=== PATIENT | female | born 1975 | race Caucasian/White ===

== ENCOUNTER 2016-10-02 10:43 | Outpatient (CLI) | payer OTHER ==
[2016-10-02] MEDS ORDERED: IOPAMIDOL-300 100 ML VIAL IVP ONE (12:38)
[2016-10-02] MEDS ORDERED: IOPAMIDOL-300 50 ML VIAL PO ONE (12:38)
--- NOTE | 2016-10-02 16:16 | CT Report ---
CT OF THE ABDOMEN AND PELVIS WITH CONTRAST: 10/02/2016 CLINICAL INDICATION: Left lower quadrant pain, history of hysterectomy. TECHNIQUE: Axial CT images of the abdomen and pelvis were obtained with 100 mL of Isovue-300 intravenously as well as oral contrast. COMPARISON: 04/28/2015. FINDINGS: Limited evaluation of the lung bases is unremarkable. ABDOMEN: The liver, spleen, pancreas and adrenal glands are unremarkable. The kidneys demonstrate small cortical cysts. No hydronephrosis or nephrolithiasis is seen. No bowel dilatation, free gas, or free fluid is present. No abdominal adenopathy is seen. PELVIS: The patient is status post hysterectomy. A small amount of free fluid is present in the pelvis. There is a 2.1 cm left ovarian follicle present. No pelvic adenopathy is seen. The osseous structures are unremarkable. IMPRESSION: LEFT OVARIAN FOLLICLE. SMALL AMOUNT OF FREE FLUID IN THE PELVIS, LIKELY PHYSIOLOGIC. NO EVIDENCE OF BOWEL OBSTRUCTION OR PERFORATION. In accordance with CT protocol optimization, one or more of the following dose reduction techniques were utilized for this exam: automated exposure control, adjustment of mA and/or KV based on patient size, or use of iterative reconstructive technique. JOB #: [id number] EXT JOB #: [id number] KARLOD
== END 2016-10-02 10:44 | disposition home or self-care (01) ==
LOC: DI 10:43
PROVIDERS: ATTEND Obstetrics & Gynecology
DX: R10.32 Left lower quadrant pain (principal)
CPT/HCPCS: 74177; Q9967

== ENCOUNTER 2017-08-05 08:26 | Outpatient (CLI) | payer OTHER ==
[2017-08-05 08:42] LABS: BASOPHILS # (AUTO) 0.1 10^3/uL (0.0-0.1); BASOPHILS % (AUTO) 0.8 %; EOSINOPHILS # (AUTO) 0.2 10^3/uL (0.0-0.7); EOSINOPHILS % (AUTO) 2.3 %; HGB - HEMOGLOBIN 14.3 g/dL (12.0-16.0); LYMPHOCYTES % (AUTO) 27.5 %; MEAN CORPUSCULAR HEMOGLOBIN 31.4 pg (27.0-31.0); MEAN CORPUSCULAR HGB CONC 33.8 g/dL (32.0-36.0); MEAN CORPUSCULAR VOLUME 93.1 fL (81.0-99.0); MONOCYTES # (AUTO) 0.6 10^3/uL (0.0-1.0); MONOCYTES % (AUTO) 7.9 %; NEUTROPHILS # (AUTO) 4.5 10^3/uL (1.5-6.6); NEUTROPHILS % (AUTO) 61.5 %; PLT - PLATELET COUNT 282 10^3/uL (130-450); RED BLOOD COUNT 4.54 10^6/uL (4.20-5.40); RED CELL DISTRIBUTION WIDTH 13.2 % (12.0-15.0); WHITE BLOOD COUNT 7.3 x10^3/uL (4.8-10.8)
[2017-08-05 08:59] LABS: ALBUMIN 4.7 g/dL (3.2-5.5); ALBUMIN/GLOBULIN RATIO 1.8 (1.0-2.2); ALKALINE PHOSPHATASE 38 IU/L (42-121); ALT ALANINE AMINOTRANSFERASE 21 IU/L (10-60); AST ASPARTATE AMINOTRANSFERASE 20 IU/L (10-42); BILIRUBIN,TOTAL 0.8 mg/dL (0.2-1.0); BUN - BLOOD UREA NITROGEN 15 mg/dL (6-20); CALCIUM 9.2 mg/dL (8.5-10.3); CARBON DIOXIDE - CO2 27 mmol/L (21-32); CHLORIDE 103 mmol/L (101-111); CHOL/HDL RATIO 2.5 (<4.4); CHOLESTEROL 228 mg/dL; CREATININE 0.7 mg/dL (0.4-1.0); GFR - MDRD 92 (>89); GLUCOSE 92 mg/dL (70-100); HDL CHOLESTEROL 90 mg/dL; LDL CHOLESTEROL,CALCULATED 127 mg/dL; LDL/HDL RATIO 1.4 (<4.4); SODIUM 137 mmol/L (135-145); TOTAL PROTEIN 7.3 g/dL (6.7-8.2); VLDL CHOLESTEROL 11 mg/dL
[2017-08-05 09:04] LABS: BILIRUBIN,URINE NEGATIVE (NEGATIVE); GLUCOSE, URINE (UA) NEGATIVE (NEGATIVE); KETONES,URINE (UA) NEGATIVE (NEGATIVE); LEUKOCYTE ESTERASE, URINE NEGATIVE (NEGATIVE); NITRITE,URINE NEGATIVE (NEGATIVE); OCCULT BLOOD,URINE NEGATIVE (NEGATIVE); PROTEIN,URINE NEGATIVE (NEGATIVE); UROBILINOGEN,URINE 0.2 (NORMAL) E.U./dL (NORMAL)
[2017-08-05 09:14] LABS: CLARITY,URINE CLEAR (CLEAR)
[2017-08-05 09:33] LABS: BACTERIA,URINE Rare /HPF (None Seen); RBC,URINE 0-5 /HPF (0-5); SQUAMOUS EPITHELIAL CELL,UR FEW Squamous (<= Few)
== END 2017-08-05 08:27 | disposition home or self-care (01) ==
LOC: LAB 08:26
PROVIDERS: ATTEND Physician Assistant Medical
DX: Z00.00 Encounter for general adult medical examination without abnormal findings (principal); Q61.5 Medullary cystic kidney
CPT/HCPCS: 36415; 80053; 80061; 81001; 83721; 84443; 85025; 87086

== ENCOUNTER 2017-08-26 09:23 | Outpatient (CLI) | payer OTHER ==
--- NOTE | 2017-08-26 12:19 | Ultrasound Report ---
PELVIC ULTRASOUND: 08/26/2017 CLINICAL INDICATION: Pain. TECHNIQUE: Transabdominal pelvic ultrasound performed for global evaluation. Transvaginal pelvic ultrasound performed for detailed evaluation. Real-time scanning performed and static images obtained. FINDINGS: The uterus is surgically absent. The right ovary measures 5.3 x 3.5 x 2.5 cm, and contains a 3.1 cm simple cyst. The left ovary measures 3.6 x 2.5 x 1.6 cm, and is unremarkable. Trace free fluid is present. IMPRESSION: 3.1 CM SIMPLE RIGHT OVARIAN CYST. TD: 08/26/2017 12:01
== END 2017-08-26 09:24 | disposition home or self-care (01) ==
LOC: DI 09:23
PROVIDERS: ATTEND Physician Assistant Medical
DX: N83.291 Other ovarian cyst, right side (principal)
CPT/HCPCS: 76830; 76856

== ENCOUNTER 2017-08-26 09:25 | Outpatient (CLI) | payer OTHER ==
--- NOTE | 2017-08-27 15:15 | Mammography Report ---
DIGITAL SCREENING MAMMOGRAM: 08/26/2017 CLINICAL INDICATION: A 42-year-old with family history of breast cancer, for screening. COMPARISON: 10/2014, 03/2013, 09/2011, 09/2010. TECHNIQUE: Routine CC and MLO projections were obtained of the breasts. FINDINGS: Scattered fibroglandular tissue is present within the breasts. There are no dominant masses, suspicious microcalcifications, or secondary signs of malignancy. In comparison to the previous studies, there are no significant changes. IMPRESSION: NO MAMMOGRAPHIC EVIDENCE OF MALIGNANCY. NO SIGNIFICANT INTERVAL CHANGES. RECOMMENDATION: Screening mammography is recommended annually. BIRADS CATEGORY 1 - NEGATIVE. STANDARD QUALIFYING STATEMENTS: 1. This examination was reviewed with the aid of Computed-Aided Detection (CAD). 2. A negative or benign imaging report should not delay biopsy if clinically suspicious findings are present. Consider surgical consultation if warranted. More than 5% of cancers are not identified by imaging. 3. Dense breasts may obscure an underlying neoplasm. TD: 08/27/2017 15:04
== END 2017-08-26 09:26 | disposition home or self-care (01) ==
LOC: DI 09:25
PROVIDERS: ATTEND Physician Assistant Medical
DX: Z12.31 Encounter for screening mammogram for malignant neoplasm of breast (principal); Z80.3 Family history of malignant neoplasm of breast
CPT/HCPCS: 77067

== ENCOUNTER 2020-01-28 06:46 | Outpatient (CLI) | payer OTHER ==
--- NOTE | 2020-01-28 09:00 | Ultrasound Report ---
PROCEDURE: Abdomen Complete INDICATIONS: INTRA-ABD AND PELVIC SWELLING, MASS AND LUMP TECHNIQUE: Real-time scanning was performed of the abdominal and retroperitoneal organs, with image documentatio n. COMPARISON: CT abdomen/pelvis 10/02/2016 FINDINGS: Liver: Liver is normal in size and homogeneous in echotexture. Gallbladder: The gallbladder contains sludge, but no calculus in the gallbladder wall thickness is no rmal at 3 mm. No adjacent free fluid or sonographic Shah's sign. Biliary ducts: Intrahepatic bile ducts are non-dilated. Extrahepatic bile duct caliber measures 2.0 mm. Normal is 6-7 mm or less in diameter, or 10 mm or less post-cholecystectomy. Pancreas: Visualized portions of the pancreas are sonographically normal. Spleen: Spleen is normal in size and homogeneous in echotexture. Kidneys: Kidneys are normal in size and echotexture. Right kidney measures 9.6 cm long; left kidney measures 9.7 cm long. No hydronephrosis or nephrolithiasis. No solid masses. The right and left k idney both contain small cysts each measuring less than 1 cm, one on the right and one on the left. E chogenic medullary pyramids are noted bilaterally. This can be seen in the setting of "medullary spon ge kidney". Aorta: Visualized aorta is normal in caliber at less than 3 cm. Iliacs: Proximal common iliac arteries are normal in caliber at less than 2.5 cm. IVC: Intrahepatic inferior vena cava is patent. Miscellaneous: No free abdominal fluid. In the area of current clinical concern, supraumbilical mid line, there is a identifiable echogenic ovoid structure that appears to protrude through a small defe ct in the peritoneal margin, with a small amount of adjacent sharply demarcated fluid in the subcutan eous fat and this structure measures only approximately 4 x 8 mm in dimension. The contain fluid imme diately adjacent overall has a dimension of 1 cm. IMPRESSION: The area of current palpable clinical concern, supraumbilical midline area of the anterior abdominal wall, appears to represent a herniated small fat-containing structure considering its increased echot exture, with a small amount of contained fluid immediately adjacent. Edema associated with a focal sm all region of fat herniation is suspected as the underlying cause. Surgical consultation may be warra nted if this structure is not reducible. Incidental note made of increased echotexture of the medullary pyramids of the kidneys symmetrically, a finding that can be associated with "medullary sponge kidney". No renal calculus is found, 2 small renal simple cysts are incidentally noted. Reviewed by: John Jackson MD on 01/28/2020 8:58 AM PDT Approved by: John Jackson MD on 01/28/2020 8:58 AM PDT Station ID: [id number]
== END 2020-01-28 06:47 | disposition home or self-care (01) ==
LOC: DI 06:46
PROVIDERS: ATTEND Nurse Practitioner Family
DX: R19.00 Intra-abdominal and pelvic swelling, mass and lump, unspecified site (principal); R10.9 Unspecified abdominal pain; K46.9 Unspecified abdominal hernia without obstruction or gangrene; N28.1 Cyst of kidney, acquired
CPT/HCPCS: 36415; 76700; 80053; 82306; 85025

== ENCOUNTER 2020-01-28 08:05 | Outpatient (CLI) | payer OTHER ==
[2020-01-28 08:14] LABS: BASOPHILS # (AUTO) 0.1 10^3/uL (0.0-0.1); BASOPHILS % (AUTO) 1.2 %; EOSINOPHILS # (AUTO) 0.2 10^3/uL (0.0-0.7); EOSINOPHILS % (AUTO) 2.6 %; HGB - HEMOGLOBIN 12.9 g/dL (12.0-16.0); LYMPHOCYTES # (AUTO) 1.8 10^3/uL (1.5-3.5); LYMPHOCYTES % (AUTO) 30.9 %; MEAN CORPUSCULAR HEMOGLOBIN 32.2 pg (27.0-31.0); MEAN CORPUSCULAR HGB CONC 31.9 g/dL (32.0-36.0); MEAN CORPUSCULAR VOLUME 100.7 fL (81.0-99.0); MEAN PLATELET VOLUME 9.3 fL (7.9-10.8); MONOCYTES # (AUTO) 0.5 10^3/uL (0.0-1.0); MONOCYTES % (AUTO) 8.2 %; NEUTROPHILS # (AUTO) 3.3 10^3/uL (1.5-6.6); NEUTROPHILS % (AUTO) 56.9 %; PLT - PLATELET COUNT 291 10^3/uL (130-450); RED BLOOD COUNT 4.01 10^6/uL (4.20-5.40); RED CELL DISTRIBUTION WIDTH 13.1 % (12.0-15.0); WHITE BLOOD COUNT 5.7 x10^3/uL (4.8-10.8)
[2020-01-28 08:29] LABS: ALBUMIN 4.3 g/dL (3.2-5.5); ALBUMIN/GLOBULIN RATIO 1.9 (1.0-2.2); BILIRUBIN,TOTAL 0.5 mg/dL (0.2-1.0); CREATININE 0.8 mg/dL (0.4-1.0); TOTAL PROTEIN 6.6 g/dL (6.7-8.2)
== END 2020-01-28 08:06 | disposition home or self-care (01) ==
LOC: LAB 08:05
PROVIDERS: ATTEND Nurse Practitioner Family
DX: R10.9 Unspecified abdominal pain (principal); E55.9 Vitamin D deficiency, unspecified
CPT/HCPCS: 36415; 80053; 82306; 85025

== ENCOUNTER 2020-02-09 08:39 | Outpatient (CLI) | payer OTHER ==
--- NOTE | 2020-02-10 13:20 | Mammography Report ---
BILATERAL DIGITAL SCREENING MAMMOGRAM 3D/2D: 02/09/2020 CLINICAL: Family history of breast cancer. Routine screening. Comparison is made to exams dated: 08/26/2017 mammogram, 11/01/2014 mammogram, 04/05/2013 mammogram, 10/16 mammogram, and 10/24/2010 mammogram - [facility]. The tissue of both breasts is heterogeneously dense. This may lower the sensitivity of mammography. No significant masses, calcifications, or other findings are seen in either breast. There has been no significant interval change. IMPRESSION: NEGATIVE There is no mammographic evidence of malignancy. A 1 year screening mammogram is recommended. This exam was interpreted at Station ID: [id number]. NOTE: For mammograms, a report in lay terms will be sent to the patient. Approximately 15% of breast malignancies will not be visualized mammographically. In the management of a palpable breast mass, a negative mammogram must not discourage biopsy of a clinically suspicious lesion. Electronically Signed By: Ramonita toscano/amor:02/09/2020 09:23:23 ACR BI-RADS Category 1: Negative 3341F PARENCHYMAL PATTERN: (D) - The breast(s) demonstrate(s) heterogeneously dense fibroglandular parenchy ma. BI-RADS CATEGORY: (1) - 1 RECOMMENDATION: (ANNUAL) - Recommend routine annual screening mammography. [id number] 1 year screening LATERALITY: (B)
== END 2020-02-09 08:40 | disposition home or self-care (01) ==
LOC: DI.N 08:39
DX: Z12.31 Encounter for screening mammogram for malignant neoplasm of breast (principal); Z80.3 Family history of malignant neoplasm of breast
CPT/HCPCS: 77063; 77067

== ENCOUNTER 2020-06-23 13:22 | Outpatient (CLI) | payer OTHER | END 2020-06-23 13:23 | disposition home or self-care (01) | LOC: COV 13:22 | PROVIDERS: ATTEND Surgery | DX: Z01.812 Encounter for preprocedural laboratory examination (principal); K43.2 Incisional hernia without obstruction or gangrene; Z20.822 Contact with and (suspected) exposure to COVID-19 ==

== ENCOUNTER 2020-06-27 07:25 | Day surgery (SDC) | payer OTHER ==
[~2020-06-27 07:25] MED LIST: ceFAZolin 2 GM/50 ML 2 GM/50 ML BAG IV ONE
[2020-06-27] MEDS ORDERED: LACTATED RINGERS 1,000 ML IV ONE ×2 (07:31→11:40)
[2020-06-27] MEDS ORDERED: fentaNYL 100 MCG/2 ML VIAL IVP PRN (08:29)
[2020-06-27] MEDS ORDERED: HYDROmorphone 0.5 MG/0.5 ML SYRINGE IVP PRN (08:29)
[2020-06-27] MEDS ORDERED: ATROPINE ABBOJECT 1 MG/10 ML SYRINGE IVP PRN (08:29)
[2020-06-27] MEDS ORDERED: ePHEDrine 50 MG/ML VIAL IVP PRN (08:29)
[2020-06-27] MEDS ORDERED: MORPHINE 2 MG/ML CARPUJECT IVP PRN (08:29)
[2020-06-27] MEDS ORDERED: METOCLOPRAMIDE 10 MG/2 ML VIAL IVP PRN (08:29)
[2020-06-27] MEDS ORDERED: ONDANSETRON 4 MG/2 ML VIAL IVP PRN (08:29)
[2020-06-27] MEDS ORDERED: NALOXONE 0.4 MG/ML VIAL IVP PRN (08:29)
--- NOTE | 2020-06-27 08:32 | ANESTHESIA ---
Pre-Anesthesia VS, & Labs - Diagnosis incisional hernia - Procedure Open incisional hernia repair Vital Signs: Temp Pulse Resp BP Pulse Ox 37.4 C 55 L 18 114/79 100 06/27/20 07:39 06/27/20 07:39 06/27/20 07:39 06/27/20 07:39 06/27/20 07:39 Height: 5 ft 3 in Weight (kg): 63 kg Body Mass Index: 24.5 BMI Classification: Healthy weight - NPO >8 hours - Is Patient ?: No - Lab Results Lab results reviewed: Yes Home Medications and Allergies Home Medications: Ambulatory Orders Magnesium Oxide [Mag Ox] 400 mg PO QPM 06/20/20 Active Medications Morphine Sulfate (Morphine 2 Mg/Ml Carpuject) 2 - 4 mg IVP Q5M PRN PRN Reason: PAIN (3rd Choice) Stop: 06/28/20 08:29 Magnesium Oxide [Mag Ox] 400 mg PO QPM 06/20/20 Allergies/Adverse Reactions: Allergies Allergy/AdvReac Type Severity Reaction Status Date / Time No Known Drug Allergies Allergy Verified 04/21/15 10:13 Anes History & Medical History - Anesthetic History Anesthesia Complications: reports: No previous complications Family history of Anesthesia Complications: Denies Family history of Malignant Hyperthermia: Denies - Medical History Cardiovascular: reports: None Pulmonary: reports: None Gastrointestinal: reports: None Urinary: reports: None Musculoskeletal: reports: Osteoarthritis Endocrine/Autoimmune: reports: None Blood Disorders: reports: None Skin: reports: None Smoking Status: Former smoker Other Past Medical History: motion sickness - Surgical History Gynecologic: reports: Hysterectomy Exam General: Alert, Oriented x3, Cooperative, No acute distress Dental: WNL Mouth Openin Fingerbreadth Neck Mobility: Normal Mallampati classification: I Respiratory: Lungs clear, Normal breath sounds, No respiratory distress, No accessory muscle use Cardiovascular: Regular rate, Normal S1, Normal S2, No murmurs Plan Anesthesia Type: General Consent for Procedure(s) Verified and Reviewed: Yes Code Status: Attempt Resuscitation ASA classification: 2-Mild systemic disease Is this case an emergency?: No
[2020-06-27] MEDS ORDERED: SCOPOLAMINE PATCH TOP SCH (09:00)
[2020-06-27] MEDS ORDERED: LACTATED RINGERS 1,000 ML IV SCH (09:00)
[2020-06-27] MEDS ORDERED: LIDOCAINE 2%-EPI 1:100000 20 ML MDV ONE (09:27)
[2020-06-27] MEDS ORDERED: BUPIVACAINE 0.25% PF 30 ML VIAL ONE ×2 (09:27→09:40)
[2020-06-27] MEDS ORDERED: PROPOFOL 200 MG/20 ML VIAL IVP ONE ×2 (09:49→11:05)
[2020-06-27] MEDS ORDERED: SEVOFLURANE 250 ML LIQUID INH ONE (09:49)
[2020-06-27] MEDS ORDERED: LIDOCAINE-MPF 2% 5 ML VIAL ONE (09:50)
[2020-06-27] MEDS ORDERED: MIDAZOLAM 2 MG/2 ML VIAL ONE (09:50)
[2020-06-27] MEDS ORDERED: ONDANSETRON 4 MG/2 ML VIAL ONE (09:50)
[2020-06-27] MEDS ORDERED: DEXAMETHASONE 4 MG/ML VIAL ONE (09:50)
[2020-06-27] MEDS ORDERED: fentaNYL 100 MCG/2 ML VIAL ONE (09:50)
[2020-06-27] MEDS ORDERED: BUPIVACAINE 0.25% PF 30 ML VIAL SUBQ ONE ×2 (10:06)
[2020-06-27] MEDS ORDERED: KETOROLAC 30 MG/ML VIAL ONE (11:07)
[2020-06-27] MEDS ORDERED: LACTATED RINGERS 100 ML IV ONE (11:16)
[2020-06-27] MEDS ORDERED: HYDROcod/ACETAM 5/325 MG TABLET PO PRN (11:18)
--- NOTE | 2020-06-27 11:18 | OPERATIVE REPORT ---
Operative Report - General Procedure Date: 06/27/20 Planned Procedure: open incisional hernia repair with mesh Pre-Op Diagnosis: incisional hernia Procedure Performed: open incisional hernia repair with mesh Post Op Diagnosis: same - Procedure Note Primary Surgeon: dustin flynn Anesthesia Technique: General LMA, Local Estimated Blood Loss (mL): 10 Complications: none
[2020-06-27 12:24] VITALS: BP 125/74
--- NOTE | 2020-06-27 12:37 | ANESTHESIA POST OP EVALUATION ---
Anesthesia Post Eval - Post Anesthesia Eval Vitals: Last Vital Signs Temp 37 C 06/27/20 12:20 Pulse 65 06/27/20 12:20 Resp 16 06/27/20 12:20 BP 125/74 06/27/20 12:20 Pulse Ox 99 06/27/20 12:20 CV Function Including HR & BP: positive: Stable Pain Control: positive: Satisfactory Nausea & Vomiting: positive: Negative Mental Status: positive: Patient Participates Respiratory Status: Airway Patent Hydration Status: Satisfactory Anesthesia Complications: positive: None
--- NOTE | 2020-06-27 12:57 | OPERATIVE REPORT ---
DATE OF SERVICE: 06/27/2020 Physician: Leonard Kaur MD PREOPERATIVE DIAGNOSIS: Incisional hernia. POSTOPERATIVE DIAGNOSIS: Incisional hernia. PROCEDURE PERFORMED: Open incisional hernia repair with mesh. SURGEON: Leonard Kaur MD RERECORDING MIXER: None. ANESTHESIA 1. Laryngeal mask anesthesia. 2. Local anesthesia with Marcaine. COMPLICATIONS: None. SPECIMENS: None. ESTIMATED BLOOD LOSS: 10 mL DRAINS: None. FINDINGS: A 1 cm fascial defect cephalad of the umbilicus. Moderate diastasis present. PROSTHETIC: A 1-inch x 2-inch polypropylene mesh placed preperitoneal. INDICATIONS FOR PROCEDURE: The patient is a 45-year-old healthy, active lady with history of laparos copic-assisted hysterectomy. She has developed an incisional hernia just cephalad of her umbilicus. She presents for open repair with mesh. Risks discussed, alternatives discussed, all questions answ ered and consent obtained. DETAILS OF PROCEDURE: The patient was properly identified and brought to the operating room and plac ed in supine position. Laryngeal mask anesthesia was induced. Sequential compression devices were p laced. She was prepped and draped in a sterile fashion and given preoperative antibiotics. Local an esthetic was given throughout the procedure. A supraumbilical 2 cm incision was made and then extend ed left lateral of the umbilicus. Dissection proceeded sharply. The umbilical skin was excised away from the fascia. Subcutaneous tissue was mobilized back from the fascial defect edge. She had humaira iated preperitoneal adipose tissue, which was mildly edematous. The hernia contents and peritoneum w ere carefully released from the fascia. The preperitoneal space was then carefully developed. A sma ll hole did occur in the peritoneum, which was closed with an interrupted 4-0 Vicryl suture. Approxi mately 2-inch tall x 1-inch wide polypropylene mesh was placed preperitoneal and secured with 9 inter rupted 0 Ethibond sutures. The fascia was then closed over the mesh with an additional 5 interrupted 0 Ethibond sutures. Mesh lay in good position without tension. Hemostasis was assured. There were no apparent complications. Umbilical skin was tacked down to the fascia with interrupted 2-0 Vicryl . Subcutaneous tissue was reapproximated with interrupted 2-0 Vicryl. Buried interrupted subdermal 3-0 Vicryl sutures were then placed. Skin was closed with a running 4-0 Monocryl subcuticular suture . Dressing was applied. She tolerated the procedure very well. TD: 06/27/2020 12:37
== END 2020-06-27 07:26 | disposition home or self-care (01) ==
LOC: SDS 07:25
PROVIDERS: ATTEND Surgery
DX: K43.2 Incisional hernia without obstruction or gangrene (principal); Z87.891 Personal history of nicotine dependence
CPT/HCPCS: 49560; 49568; C1781; J0690; J3490; J7120

== ENCOUNTER 2020-10-16 16:44 | Outpatient (CLI) | payer OTHER, BC ==
--- NOTE | 2020-10-17 14:42 | XRAY Report ---
PROCEDURE: Knee 3 View RT INDICATIONS: R KNEE PX TECHNIQUE: 3 views of the right knee(s) were acquired. COMPARISON: None. FINDINGS: Bones: No fractures or dislocations. No suspicious bony lesions. Soft tissues: No joint effusion. No suspicious soft tissue calcifications. IMPRESSION: No trauma found. No effusion identified. Reviewed by: John Jackson MD on 10/17/2020 2:41 PM PDT Approved by: John Jackson MD on 10/17/2020 2:41 PM PDT Station ID: [id number]
== END 2020-10-16 23:59 | disposition home or self-care (01) ==
LOC: DI.N 16:44
PROVIDERS: ATTEND Physician Assistant Medical
DX: M25.561 Pain in right knee (principal)

== ENCOUNTER 2021-08-01 14:22 | Outpatient (CLI) | payer OTHER, BC ==
--- NOTE | 2021-08-02 08:43 | Ultrasound Report ---
PROCEDURE: Head or Neck Soft Tissue INDICATIONS: NECK MASS TECHNIQUE: Real time scanning was performed of the neck region of interest, with image documentation . COMPARISON: None. FINDINGS: Right: Thyroid lobe measures 5.5 x 2.4 x 2 point cm, and is heterogeneous in echotexture, containing multiple nodules. Left: Thyroid lobe measures 3.5 x 1.9 x 2.0 cm, and is unchanged in echotexture, containing multiple nodules. Isthmus: 10 mm thick. Nodule number: 1 Location: Right superior Size: 2.3 x 1.6 x 2.0 cm. Composition: Solid Echogenicity: Isoechoic Shape: wider than tall. Margins: Smooth smooth Echogenic foci: None Total points: 3 ACR TI-RADS category: TI-RADS 3 Nodule number: 3 Location: Right inferior Size: 1.2 x 0.6 x 1.1 cm. Composition: Solid Echogenicity: Isoechoic Shape: wider than tall. Margins: Smooth smooth Echogenic foci: None Total points: 3 ACR TI-RADS category: TI-RADS 3 Nodule number: 3 Location: Right superior medial Size: 0.9 x 0.5 x 0.8 cm. Composition: Solid Echogenicity: Isoechoic Shape: wider than tall. Margins: Smooth smooth Echogenic foci: None Total points: 3 ACR TI-RADS category: TI-RADS 3 Nodule number: 4 Location: Left superior Size: 1.5 x 0.8 x 1.4 cm. Composition: Solid Echogenicity: Isoechoic Shape: wider than tall. Margins: Smooth smooth Echogenic foci: None Total points: 3 ACR TI-RADS category: TI-RADS 3 Nodule number: 5 Location: Left mid Size: 0.7 x 0.5 x 0.7 cm. Composition: Solid Echogenicity: Hyperechoic Shape: wider than tall. Margins: Irregular Echogenic foci: macrocalcs Total points: 6 ACR TI-RADS category: TI-RADS 4 IMPRESSION: 1. Thyromegaly with multiple thyroid nodules suggesting multinodular goiter. The largest nodule is in the superior pole of the right thyroid lobe. 2. Recommend an ultrasound follow-up in 12 months. Please see enclosed follow-up recommendation. ACR TI-RADS definitions and recommendations: TI-RADS 1 (benign): 0 points. FNA not needed. TI-RADS 2 (not suspicious): 2 points. FNA not needed. TI-RADS 3 (mildly suspicious): 3 points. "FNA if 2.5 cm or larger, follow up if 1.5 cm or larger (at 1, 3, and 5 years). TI-RADS 4 (moderately suspicious): 4-6 points. "FNA if 1.5 cm or larger, follow up if 1 cm or larger (at 1, 2, 3, and 5 years). TI-RADS 5 (highly suspicious): 7 points or more. "FNA if 1 cm or larger, follow up if 0.5 cm or larger (every year for 5 years). Reviewed by: Marc Hernández MD on 08/02/2021 8:42 AM PDT Approved by: Marc Hernández MD on 08/02/2021 8:42 AM PDT Station ID: [id number]
== END 2021-08-01 14:23 | disposition home or self-care (01) ==
LOC: DI 14:22
PROVIDERS: ATTEND Nurse Practitioner Family
DX: E04.2 Nontoxic multinodular goiter (principal)

== ENCOUNTER 2021-08-21 15:22 | Outpatient (CLI) | payer OTHER, BC ==
[2021-08-21 17:58] LABS: BASOPHILS # (AUTO) 0.1 10^3/uL (0.0-0.1); BASOPHILS % (AUTO) 0.8 %; EOSINOPHILS # (AUTO) 0.1 10^3/uL (0.0-0.7); EOSINOPHILS % (AUTO) 1.6 %; HCT - HEMATOCRIT 42.3 % (37.0-47.0); HGB - HEMOGLOBIN 13.4 g/dL (12.0-16.0); LYMPHOCYTES # (AUTO) 2.3 10^3/uL (1.5-3.5); MEAN CORPUSCULAR HEMOGLOBIN 30.6 pg (27.0-31.0); MEAN CORPUSCULAR HGB CONC 31.7 g/dL (32.0-36.0); MEAN CORPUSCULAR VOLUME 96.6 fL (81.0-99.0); MEAN PLATELET VOLUME 9.6 fL (7.9-10.8); MONOCYTES # (AUTO) 0.7 10^3/uL (0.0-1.0); MONOCYTES % (AUTO) 9.1 %; NEUTROPHILS # (AUTO) 4.4 10^3/uL (1.5-6.6); NEUTROPHILS % (AUTO) 58.4 %; PLT - PLATELET COUNT 328 10^3/uL (130-450); RED BLOOD COUNT 4.38 10^6/uL (4.20-5.40); RED CELL DISTRIBUTION WIDTH 13.4 % (12.0-15.0); WHITE BLOOD COUNT 7.6 x10^3/uL (4.8-10.8)
[2021-08-21 18:21] LABS: ALBUMIN 4.9 g/dL (3.2-5.5); ALBUMIN/GLOBULIN RATIO 1.9 (1.0-2.2); ALKALINE PHOSPHATASE 36 IU/L (42-121); ALT ALANINE AMINOTRANSFERASE 20 IU/L (10-60); AST ASPARTATE AMINOTRANSFERASE 18 IU/L (10-42); BILIRUBIN,TOTAL 0.3 mg/dL (0.2-1.0); BUN - BLOOD UREA NITROGEN 14 mg/dL (6-20); CALCIUM 9.6 mg/dL (8.5-10.3); CARBON DIOXIDE - CO2 26 mmol/L (21-32); CHLORIDE 102 mmol/L (101-111); CHOL/HDL RATIO 2.4 (<4.4); CHOLESTEROL 232 mg/dL; CREATININE 0.8 mg/dL (0.4-1.0); GFR - MDRD 77 (>89); GLUCOSE 88 mg/dL (70-100); HDL CHOLESTEROL 96 mg/dL; LDL CHOLESTEROL,CALCULATED 121 mg/dL; LDL/HDL RATIO 1.3 (<4.4); POTASSIUM 3.6 mmol/L (3.5-5.0); SODIUM 137 mmol/L (135-145); TOTAL PROTEIN 7.5 g/dL (6.7-8.2); TRIGLYCERIDES 74 mg/dL; VLDL CHOLESTEROL 15 mg/dL
[2021-08-21 18:29] LABS: THYROID STIMULATING HORMONE 1.64 uIU/mL (0.34-5.60)
[2021-08-21 21:49] LABS: ESTIMATED AVERAGE GLUCOSE 103 mg/dL (70-100); HEMOGLOBIN A1c% 5.2 % (4.27-6.07)
== END 2021-08-21 15:23 | disposition home or self-care (01) ==
LOC: LAB.N 15:22
PROVIDERS: ATTEND Nurse Practitioner Family
DX: Z00.00 Encounter for general adult medical examination without abnormal findings (principal); E55.9 Vitamin D deficiency, unspecified
CPT/HCPCS: 36415; 80053; 80061; 82306; 83036; 83721; 84443; 85025

== ENCOUNTER 2022-06-04 11:43 | Outpatient (CLI) | payer BC ==
--- NOTE | 2022-06-04 16:33 | XRAY Report ---
PROCEDURE: Shoulder 3 View LT INDICATIONS: SHOULDER PAIN LEFT TECHNIQUE: 3 views of the shoulder were acquired. COMPARISON: None. FINDINGS: Bones: No fractures or dislocations. No suspicious bony lesions. Visualized ribs appear intact. Soft tissues: No suspicious soft tissue calcifications. IMPRESSION: No acute fracture. No osseous lesion. If symptoms and/or clinical suspicion for patholog y continue, further assessment with repeat plain films, or advanced imaging (e.g., CT, MRI, or bone s can) is recommended for further assessment. Reviewed by: Sendy Rene MD on 06/04/2022 4:31 PM PST Approved by: Sendy Rene MD on 06/04/2022 4:31 PM PST Station ID: [id number]
== END 2022-06-04 11:44 | disposition home or self-care (01) ==
LOC: DI 11:43
PROVIDERS: ATTEND Nurse Practitioner Family
DX: M25.512 Pain in left shoulder (principal)

== ENCOUNTER 2022-08-09 18:35 | Outpatient (CLI) | payer BC ==
--- NOTE | 2022-08-21 08:58 | Ultrasound Report ---
PROCEDURE: Head or Neck Soft Tissue INDICATIONS: THYROID GOITER TECHNIQUE: Real-time scanning was performed of the thyroid gland, with image documentation. COMPARISON: Thyroid ultrasound 08/01/2021 FINDINGS: Right: Thyroid lobe measures 5.5 x 2.2 x 2.5 cm, and is homogeneous in echotexture. Left: Thyroid lobe measures 5.4 x 1.6 x 1.8 cm, and is homogenous in echotexture. Isthmus: 0.4 cm thick. Nodule number: 1 Location: Right superior Size: 2.5 x 1.8 x 2.1 cm (previously 2.3 x 1.6 x 2 cm) Composition: Solid (2 points). Echogenicity: Hyperechoic (1 point). Shape: wider than tall. Margins: Smooth (0 points). Echogenic foci: None (0 points). Total points: 3 ACR TI-RADS category: Mildly suspicious (3 points). Nodule number: 3 Location: Right superior Size: 0.8 x 0.4 x 0.8 cm (previously 0.9-0 0.5 x 0.8 cm). Composition: Solid (2 points). Echogenicity: Isoechoic (1 point). Shape: wider than tall. Margins: Smooth (0 points). Echogenic foci: None (0 points). Total points: 3 ACR TI-RADS category: Mildly suspicious (3 points). Nodule number: 4 Location: Left superior Size: 1.4 x 1.0 x 1.1 cm (previously 1.5 x 0.8 x 1.4 cm. Composition: Solid (2 points). Echogenicity: Isoechoic (1 point). Shape: wider than tall. Margins: Smooth (0 points). Echogenic foci: None (0 points). Total points: 3 ACR TI-RADS category: Mildly suspicious (3 points). Nodule number: 5 Location: Left inferior Size: 0.7 x 0.8 x 0.7 cm (previously 0.7 x 0.5 x 0.7 cm). Composition: Solid (2 points). Echogenicity: Hyperechoic (1 point). Shape: wider than tall. Margins: Ill-defined (0 points). Echogenic foci: Macrocalcification (1 point). Total points: 4 ACR TI-RADS category: Moderately suspicious (4-6 points). IMPRESSION: Multiple thyroid nodules again seen is suspected in the body report. Right superior thyr oid nodule #1 now meets size criteria for ultrasound-guided fine-needle aspiration. ACR TI-RADS definitions and recommendations: TI-RADS 1 (benign): 0 points. FNA not needed. TI-RADS 2 (not suspicious): 2 points. FNA not needed. TI-RADS 3 (mildly suspicious): 3 points. "FNA if 2.5 cm or larger, follow up if 1.5 cm or larger (at 1, 3, and 5 years). TI-RADS 4 (moderately suspicious): 4-6 points. "FNA if 1.5 cm or larger, follow up if 1 cm or larger (at 1, 2, 3, and 5 years). TI-RADS 5 (highly suspicious): 7 points or more. "FNA if 1 cm or larger, follow up if 0.5 cm or larger (every year for 5 years). Reviewed by: Vernon Hernandez MD on 08/21/2022 8:57 AM PDT Approved by: Vernon Hernandez MD on 08/21/2022 8:57 AM PDT Station ID: [id number]
== END 2022-08-09 18:36 | disposition home or self-care (01) ==
LOC: DI 18:35
PROVIDERS: ATTEND Nurse Practitioner Family
DX: E04.2 Nontoxic multinodular goiter (principal)

== ENCOUNTER 2022-09-27 08:41 | Outpatient (CLI) | payer BC ==
[2022-09-27] MEDS ORDERED: LIDOCAINE-MPF 1% 5 ML VIAL ONE (09:03)
[2022-09-27] MEDS ORDERED: LIDOCAINE-MPF 1% 5 ML VIAL TD ONE (11:20)
--- NOTE | 2022-09-27 12:08 | Ultrasound Report ---
PROCEDURE: FNA Bx w/US Gdn 1st Les INDICATIONS: THYROID NODULE TECHNIQUE: The indications, alternatives, benefits, risks, and complications of the procedure were explained to the patient. Written informed consent was obtained and placed in the chart. The area of interest wa s examined sonographically and a site was chosen for ultrasound guided percutaneous sampling. The sk in was prepared and draped in the usual fashion, and anesthetized with 1% lidocaine infiltrated from the skin down to the lesion. Multiple passes were then performed, with contents emptied into an appr [facility] pathology specimen container. A bandage was applied to the area of access at completion of t he study. COMPARISON: None. FINDINGS: Location(s) of lesion(s) sampled: Right thyroid nodule [place]: 25 gauge hypodermic needles. Number of passes: 6 Medications: 1% lidocaine for local anaesthesia. Complications: None. IMPRESSION: Successful ultrasound-guided right thyroid nodule fine needle aspiration, with cytology results yuko campos. Reviewed by: Sendy Rene MD on 09/27/2022 12:07 PM PDT Approved by: Sendy Rene MD on 09/27/2022 12:07 PM PDT Station ID: [id number]
== END 2022-09-27 08:42 | disposition home or self-care (01) ==
LOC: DI 08:41
PROVIDERS: ATTEND Family Medicine
DX: E04.1 Nontoxic single thyroid nodule (principal)
CPT/HCPCS: 10005

== ENCOUNTER 2023-05-15 08:10 | Outpatient (CLI) | payer BC ==
--- NOTE | 2023-05-16 09:14 | Mammography Report ---
BILATERAL DIGITAL SCREENING MAMMOGRAM 3D/2D: 05/15/2023 CLINICAL: Routine screening. Comparison is made to exams dated: 09/03/2021 mammogram, 02/09/2020 mammogram, 08/26/2017 mammogram, 11/01/2014 mammogram, and 04/05/2013 mammogram - [facility]. Both breasts are heterogeneously dense, which may obscure small masses (category c / 51-75% glandular tissue). No significant masses, calcifications, or other findings are seen in either breast. There has been no significant interval change. IMPRESSION: NEGATIVE There is no mammographic evidence of malignancy. A 1 year screening mammogram is recommended. Based on the Tyrer Cuzick model (a risk assessment model) the patient's lifetime risk is 15.5% and he r 10 year risk is 3.5%. According to the ACR, ACS, and NCCN guidelines, an annual breast MRI exam lissett ng with mammogram is recommended if the patient's lifetime risk is 20% or greater. This exam was interpreted at Station ID: [id number]. NOTE: For mammograms, a report in lay terms will be sent to the patient. Approximately 15% of breast malignancies will not be visualized mammographically. In the management of a palpable breast mass, a negative mammogram must not discourage biopsy of a clinically suspicious lesion. Electronically Signed By: Thierno metz/amor:05/15/2023 09:36:49 letter sent: No_Letter ACR BI-RADS Category 1: Negative 3341F PARENCHYMAL PATTERN: (D) - The breast(s) demonstrate(s) heterogeneously dense fibroglandular lizet anton. BI-RADS CATEGORY: (1) - 1 Mammogram [id number] 1 year screening LATERALITY: (B)
== END 2023-05-15 08:11 | disposition home or self-care (01) ==
LOC: DI 08:10
DX: Z12.31 Encounter for screening mammogram for malignant neoplasm of breast (principal); R92.333 Mammographic heterogeneous density, bilateral breasts

== ENCOUNTER 2023-09-20 09:02 | Outpatient (CLI) | payer BC ==
[2023-09-20 09:23] LABS: BASOPHILS # (AUTO) 0.1 10^3/uL (0.0-0.1); EOSINOPHILS # (AUTO) 0.2 10^3/uL (0.0-0.7); EOSINOPHILS % (AUTO) 3.6 %; HCT - HEMATOCRIT 42.1 % (37.0-47.0); HGB - HEMOGLOBIN 13.3 g/dL (12.0-16.0); LYMPHOCYTES % (AUTO) 38.8 %; MEAN CORPUSCULAR HEMOGLOBIN 30.2 pg (27.0-31.0); MEAN CORPUSCULAR HGB CONC 31.6 g/dL (32.0-36.0); MEAN CORPUSCULAR VOLUME 95.5 fL (81.0-99.0); MEAN PLATELET VOLUME 9.3 fL (7.9-10.8); MONOCYTES # (AUTO) 0.4 10^3/uL (0.0-1.0); MONOCYTES % (AUTO) 8.4 %; NEUTROPHILS # (AUTO) 2.5 10^3/uL (1.5-6.6); PLT - PLATELET COUNT 276 10^3/uL (130-450); RED BLOOD COUNT 4.41 10^6/uL (4.20-5.40); RED CELL DISTRIBUTION WIDTH 13.2 % (12.0-15.0); WHITE BLOOD COUNT 5.3 x10^3/uL (4.8-10.8)
[2023-09-20 09:37] LABS: ALBUMIN 4.6 g/dL (3.2-5.5); ALBUMIN/GLOBULIN RATIO 2.1 (1.0-2.2); ALKALINE PHOSPHATASE 52 IU/L (42-121); ALT ALANINE AMINOTRANSFERASE 28 IU/L (10-60); AST ASPARTATE AMINOTRANSFERASE 20 IU/L (10-42); BILIRUBIN,TOTAL 0.4 mg/dL (0.2-1.0); BUN - BLOOD UREA NITROGEN 16 mg/dL (6-20); CALCIUM 9.8 mg/dL (8.5-10.3); CARBON DIOXIDE - CO2 30 mmol/L (21-32); CHLORIDE 105 mmol/L (101-111); CHOL/HDL RATIO 2.9 (<4.4); CHOLESTEROL 239 mg/dL; CREATININE 0.8 mg/dL (0.6-1.3); GFR - MDRD 77 (>89); GLUCOSE 89 mg/dL (74-104); HDL CHOLESTEROL 83 mg/dL; LDL CHOLESTEROL,CALCULATED 138 mg/dL; LDL/HDL RATIO 1.7 (<4.4); POTASSIUM 3.9 mmol/L (3.5-4.5); SODIUM 139 mmol/L (135-145); TOTAL PROTEIN 6.8 g/dL (6.4-8.9); TRIGLYCERIDES 90 mg/dL (48-352); VLDL CHOLESTEROL 18 mg/dL
[2023-09-20 09:52] LABS: THYROID STIMULATING HORMONE 1.64 uIU/mL (0.34-5.60)
== END 2023-09-20 09:03 | disposition home or self-care (01) ==
LOC: LAB 09:02
PROVIDERS: ATTEND Physician Assistant
DX: E55.9 Vitamin D deficiency, unspecified (principal); Z13.9 Encounter for screening, unspecified
CPT/HCPCS: 36415; 80053; 80061; 82306; 83721; 84443; 85025